=== PATIENT | female | born 1960 | race Caucasian/White ===

== ENCOUNTER 2020-07-21 15:18 | Outpatient (REF) | payer OTHER, SELFPAY ==
[2020-07-21 18:20] LABS: COVID-19 Test Negative (Negative)
== END 2020-07-21 15:19 | disposition home or self-care (01) ==
LOC: HO.LAB 15:18
PROVIDERS: PCP Internal Medicine; Visit Provider Internal Medicine
DX: Z20.828 Contact with and (suspected) exposure to other viral communicable diseases (principal)
CPT/HCPCS: 87635; C9803

== ENCOUNTER 2020-07-22 12:53 | Outpatient (REF) | payer OTHER, SELFPAY ==
[2020-07-22 13:30] LABS: COVID-19 Test Negative (Negative)
== END 2020-07-22 12:54 | disposition home or self-care (01) ==
LOC: HO.LAB 12:53
PROVIDERS: Visit Provider Internal Medicine
DX: Z20.828 Contact with and (suspected) exposure to other viral communicable diseases (principal)
CPT/HCPCS: 87635; C9803

== ENCOUNTER 2020-08-31 15:28 | Outpatient (REF) | payer OTHER, SELFPAY ==
[2020-08-31 16:38] LABS: Blood Urea Nitrogen 13 mg/dL (9-16); Estimated Glomerular Filt Rate > 60
== END 2020-08-31 15:29 | disposition home or self-care (01) ==
LOC: HO.LAB 15:28
PROVIDERS: PCP Internal Medicine; Visit Provider Internal Medicine
DX: I10 Essential (primary) hypertension (principal)
CPT/HCPCS: 82565; 84520

== ENCOUNTER 2020-09-01 10:24 | Outpatient (REF) | payer OTHER, SELFPAY ==
[2020-09-01 11:00] LABS: COVID-19 Test Negative (Negative)
== END 2020-09-01 10:25 | disposition home or self-care (01) ==
LOC: HO.EMPCOV 10:24
PROVIDERS: Visit Provider Internal Medicine
DX: Z20.828 Contact with and (suspected) exposure to other viral communicable diseases (principal)
CPT/HCPCS: 87635; C9803

== ENCOUNTER 2020-09-30 08:39 | Outpatient (REF) | payer OTHER, SELFPAY ==
--- NOTE | 2020-09-30 08:43 | CT_ITS ---
EXAMINATION: CT ABDOMEN WITH CONTRAST CLINICAL INFORMATION: Right upper quadrant pain. COMPARISON: None TECHNIQUE: Contiguous axial thin section helical images of the abdomen were performed following the administration of oral contrast and 100 mL of Omnipaque 350 intravenous contrast. The data set was reformatted in the coronal and sagittal planes and reviewed on an independent workstation. This CT examination was performed using dose optimization techniques as appropriate, variously including the following: *Automated exposure control *Adjustment of mA and/or kV according to patient size (this includes techniques or standardized protocols for targeted exams where dose is matched to indication/reason for exam; i.e. extremities or head) *Use of iterative reconstruction technique DLP: 462 mGy-cm FINDINGS: LUNG BASES: The lung bases are clear. Heart size is normal. LIVER, GALLBLADDER, AND BILIARY TREE: The liver is diffusely attenuated with normal contour and mild hepatomegaly. It measures 23.3 cm in length. There is a punctate tubular hypodensity right hepatic lobe adjacent the diaphragm likely tiny cyst on axial image 12/3. No solid enhancing lesions seen. The gallbladder has been surgically removed. PANCREAS: Unremarkable. SPLEEN: Unremarkable. ADRENAL GLANDS AND KIDNEYS: Both adrenal glands are symmetrical bilaterally and normal. Both kidneys are normal size, shape and position. No radiopaque renal calculi or hydronephrosis seen. There is no cyst or enhancing renal mass. BOWEL LOOPS: There is scattered stool seen in the colon without any significant distention. Opacified small bowel loops are of normal caliber. Appendix is not seen well. No free air or free fluid. LYMPH NODES: Mild shotty lymph nodes are seen in the retroperitoneum. VASCULAR: Abdominal aorta has normal caliber. BONES: No lytic or sclerotic process seen. CT/CT abdomen w con IMPRESSION: Moderate hepatomegaly with hepatic steatosis or fatty infiltration. Punctate lesion right hepatic lobe likely tiny cyst. Gallbladder has been surgically removed. CBD is mildly prominent an expected finding post cholecystectomy. No acute intra-abdominal process seen.
[2020-09-30] MEDS: iohexoL 350 MG/ML 100 ML INFUS..BTL IV (11:04)
== END 2020-09-30 08:40 | disposition home or self-care (01) ==
LOC: HO.CT 08:39
PROVIDERS: PCP Internal Medicine; Visit Provider Internal Medicine
DX: R10.11 Right upper quadrant pain (principal)
CPT/HCPCS: 74160; Q9967

== ENCOUNTER 2020-11-05 10:29 | Outpatient (REF) | payer OTHER, SELFPAY ==
[2020-11-05 10:48] LABS: COVID-19 Test Negative (Negative); IDNOW Serial# 55D5AD1C
== END 2020-11-05 10:30 | disposition home or self-care (01) ==
LOC: HO.EMPCOV 10:29
PROVIDERS: Visit Provider Internal Medicine
DX: Z20.822 Contact with and (suspected) exposure to COVID-19 (principal)
CPT/HCPCS: 36415; 87635; C9803

== ENCOUNTER 2022-04-22 09:27 | Outpatient (REF) | payer OTHER, SELFPAY ==
[2022-04-22 09:36] LABS: MANUAL DIFF FLAG NO
[2022-04-22 10:15] LABS: Basophils Absolute Auto 0.1 X10*3/uL (0.0-0.2); Basophils Percent Auto 0.5 % (0-2); Eosinophils Absolute Auto 0.2 X10*3/uL (0.0-0.4); Eosinophils Percent Auto 1.8 % (0-4); Hematocrit 38.5 % (37.0-47.0); Imm Gran Abs Auto 0.07 X10*3/uL (0.00-0.03); Imm Gran Pct Auto 0.7 % (0.0-0.4); Lymphocytes Absolute Auto 2.9 X10*3/uL (1.2-4.9); Lymphocytes Percent Auto 27.4 % (20-40); Mean Corpuscular HGB Conc 31.2 g/dl (31.0-35.0); Mean Corpuscular Hemoglobin 27.1 pg (27.0-33.0); Mean Corpuscular Volume 86.9 fL (80.0-98.0); Mean Platelet Volume 10.5 fL (9.4-12.3); Monocytes Absolute Auto 0.7 X10*3/uL (0.1-1.2); Monocytes Percent Auto 6.8 % (2-11); Neutrophils Absolute Auto 6.7 x10*3/uL (2.0-8.3); Neutrophils Percent Auto 62.8 % (45-73); Platelet Count 273 X10*3/uL (160-400); Red Blood Count 4.43 X10*6/uL (4.20-5.50); White Blood Count 10.6 X10*3/uL (4.8-10.8)
[2022-04-22 10:30] LABS: Estimated Average Glucose 134 mg/dL; Hemoglobin A1c % 6.3 %
[2022-04-22 10:41] LABS: Alanine Aminotransferase 11 U/L (0-31); Alkaline Phosphatase 86 U/L (39-117); Anion Gap 15 (12-20); Aspartate Amino Transferase 12 U/L (5-31); Bilirubin Total 0.3 mg/dL (0.0-1.0); Blood Urea Nitrogen 13 mg/dL (9-16); Calcium 9.1 mg/dL (8.4-10.2); Carbon Dioxide 27 mmol/L (22-29); Chloride 104 mmol/L (96-108); Cholesterol 184 mg/dL; Estimated Glomerular Filt Rate > 60; Glucose Fasting 120 mg/dL (60-99); HDL Cholesterol 46 mg/dL; LDL Cholesterol Calculated 122 mg/dl; Sodium 142 mmol/L (135-145); Total Protein 7.1 g/dL (6.5-8.0); Triglycerides 80 mg/dL
[2022-04-22 11:04] LABS: TSH reflex Free T4 2.26 uIU/mL (0.32-4.0)
[2022-04-22 11:56] LABS: Creatinine Urine 74.94 mg/dL; Microalbum/Creatinine Ratio Ur 9.3 ug/mg cr
[2022-04-27 12:31] LABS: Vitamin D 25-OH, D2 <4 ng/mL; Vitamin D 25-OH, D3 25 ng/mL; Vitamin D 25-OH, Total 25 ng/mL (30-100)
== END 2022-04-22 09:28 | disposition home or self-care (01) ==
LOC: HO.LAB 09:27
PROVIDERS: PCP Nurse Practitioner Family; Visit Provider Nurse Practitioner Family
DX: E55.9 Vitamin D deficiency, unspecified (principal); I10 Essential (primary) hypertension; J30.2 Other seasonal allergic rhinitis; J45.20 Mild intermittent asthma, uncomplicated; E78.00 Pure hypercholesterolemia, unspecified; E11.9 Type 2 diabetes mellitus without complications
CPT/HCPCS: 36415; 80053; 80061; 82043; 82306; 83036; 84443; 85025

== ENCOUNTER 2023-01-30 10:44 | Outpatient (REF) | payer OTHER, SELFPAY ==
--- NOTE | ~2023-01-30 | MM_ITS ---
EXAMINATION: MM SCREENING DIGITAL BREAST TOMOSYNTHESIS, BILATERAL CLINICAL INFORMATION: Screening. Asymptomatic. The lifetime risk of breast cancer based on the Tyrer-Cuzick Model is 8%. COMPARISON: Mammography: 02/29/2020, 12/29/2018, 12/01/2017 TECHNIQUE: Digital breast tomosynthesis is performed in both the craniocaudal and mediolateral oblique views along with computer-aided detection (CAD). Synthesized 2D images are generated from the tomosynthesis. Additional left cleavage view is provided. FINDINGS: There are scattered areas of fibroglandular density (ACR BI-RADS breast composition Category b). Breast tissue composition borders on predominantly fatty. Background stromal and fibroglandular densities are similar to prior studies. No developing density or architectural abnormality. There are no significant masses, abnormal calcifications, or other abnormalities. There is a dermal lesion overlying posterior 11:00 right breast. The axilla are unremarkable. No significant changes. MM/MM tomosynthesis screening BI IMPRESSION: No mammographic evidence of malignancy. ASSESSMENT: BI-RADS 2: Benign RECOMMENDATION: Routine annual mammography screening. This patient's information was entered into a reminder system with a target due date for their next mammogram.
== END 2023-01-30 10:45 | disposition home or self-care (01) ==
LOC: HO.MAMMO 10:44
PROVIDERS: PCP Nurse Practitioner Family; Visit Provider Nurse Practitioner Family
DX: Z12.31 Encounter for screening mammogram for malignant neoplasm of breast (principal)
CPT/HCPCS: 77063; 77067

== ENCOUNTER 2024-01-02 14:34 | Outpatient (AMB) | payer OTHER, SELFPAY ==
--- NOTE | 2024-01-02 14:37 | A.OFFPC_ITS ---
Vital Signs 01/02/24 14:39 Height 5 ft 1.5 in Weight 268 lb 8 oz BMI 49.9 BP 126/76 Blood Pressure Location Lt brachial Position Sitting Pulse 75 Pulse Source Pulse Oximeter Pulse Oximetry (%) 99 Oxygen Delivery Method Room Air Intake Visit Reasons: Transfer care from [facility] Note: Patient is here today for DWAYNE from [employer] Assistant Auditor Required: No Retirement Plan Specialist: Not Required per policy Accompanied by: Self / Same As Patient Allergies acetaminophen [From Tylenol-Codeine #3] Allergy (Severe, Verified 01/02/24 15:33) ANGIOEDEMA codeine [From Tylenol-Codeine #3] Allergy (Severe, Verified 01/02/24 15:33) ANGIOEDEMA Sulfa (Sulfonamide Antibiotics) Allergy (Intermediate, Verified 01/02/24 15:33) Unknown sulfamethoxazole [From BACTRIM] Allergy (Unknown, Verified 01/02/24 15:33) HIVES trimethoprim [From BACTRIM] Allergy (Unknown, Verified 01/02/24 15:33) HIVES metformin Adverse Reaction (Intermediate, Verified 01/02/24 15:33) Diarrhea Medication List - Last Reconciled 01/02/24 by Cesar Manzo MD albuterol sulfate 90 mcg/actuation 2 puffs inhalation Q6H PRN albuterol sulfate 5 mg inhalation Q6H PRN cetirizine 10 mg PO DAILY cholecalciferol (vitamin D3) 25 mcg PO DAILY fluticasone propionate 50 mcg/actuation (Flonase Allergy Relief) 1 spray intranasal DAILY PRN glipizide ER 5 mg PO DAILY levothyroxine 137 mcg PO DAILY olmesartan-hydrochlorothiazide 40-25 mg 1 tab PO DAILY Tobacco use date assessed: 01/02/24 Dental Screening Dental Screen Date: 01/02/24 Did you have a dental visit in the last 12 months?: No Did you have a dental problem in the last 6 months where you did not have access to dental care?: No Was dental information given to patient?: Patient has dentist HPI Transfer care from [facility] HPI Details 63-year-old female presents to the offic e to discuss her medical condition. I will be assuming her care as her provider has left the practice. 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 She gives history of prediabetes and hypertension. She would like a different medication for diabetes. Currently she takes Glucotrol. She is unable to tolerate metformin or Jardiance. Under mental stress as her brother has ALS and her sister recently underwent a kidney transplant. [facility] Medical History (Updated 01/02/24 @ 15:35 by Cesar Manzo MD) Hypertension Pre-diabetes Hypothyroidism Hyperlipidemia Morbid obesity with BMI of 50.0-59.9, adult COVID-19 Encounter to establish care Surgical History History of biopsy History of tonsillectomy History of cholecystectomy History of bilateral breast reduction surgery Social History Housing: House (town house) Alcohol intake: current Alcohol intake frequency: a few times a month Alcohol type: wine Patient Tobacco Use Status: Never used Tobacco e-Cigarette/Vaping Use: Never Used Second Hand Smoke Exposure: No service: No Current occupational status: employed Cognitive needs: No Hearing needs: No Vision needs: Yes (glasses) Questionnaire PHQ-9 Over the last 2 weeks, how often have you been bothered by any of the following problems? 1. Little interest or pleasure in doing things: not at all 2. Feeling down, depressed, or hopeless: not at all 3. Trouble falling or staying asleep, or sleeping too much: not at all 4. Feeling tired or having little energy: not at all 5. Poor appetite or overeating: not at all 6. Feeling bad about yourself - or that you are a failure or have let yourself or your family down: not at all 7. Trouble concentrating on things, such as reading the newspaper or watching television: not at all 8. Moving or speaking so slowly that other people could have noticed. Or the opposite - being so fidgety or restless that you have been moving around a lot more than usual: not at all 9. Thoughts that you would be better off or of hurting yourself in some way: not at all Total score: 0 Depression Screening Interpretation: Negative Depression Screening Done: Yes Source: Developed by Drs. Oswaldo Contreras, Anne Howard, Ramon Mosquera and colleagues, with an educational rob from [employer]. Thrive Questionnaire Date Thrive assessed: 01/02/24 I am a: Patient What is your living situation today?: I have a steady place to live Within the past 12 months, did the food you bought not last and you didn't have the money to get more?: Never true Within the past 12 months, did you worry whether your food would run out before you got money to buy more?: Never true Do you have trouble paying for medicines?: No Do you have trouble getting transportation to medical appointments?: No Do you have trouble paying your heating and electricity bill?: No Do you have trouble taking care of your child, family member or friend?: No Do you have trouble with day-to-day activities such as bathing, preparing meals, shopping, managing finances, etc.?: No Are you currently unemployed and looking for a job?: No Are you interested in more education?: No Currently or been in a relationship where the following occur: no concerns reported THRIVE Score: 0 AUDIT C Alcohol Use Questionnaire (AUDIT-C) 1. How often do you have a drink containing alcohol?: Monthly or less 2. How many drinks containing alcohol do you have on a typical day when you are drinking?: 1 or 2 Total Score: 1 SALMA-7 AMB Questionnaire SALMA-7 Date SALMA - 7 assessed: 01/02/24 Feeling nervous, anxious, or on edge: 0 = Not at all Not being able to stop or control worryin = Not at all Worrying too much about different things: 0 = Not at all Trouble relaxin = Not at all Being so restless that it is hard to sit still: 0 = Not at all Becoming easily annoyed or irritable: 0 = Not at all Feeling afraid as if something awful might happen: 0 = Not at all Total SALMA-7 score (0-4 normal; 5-9 mild; 10-14 moderate; 15-21 severe): 0 Source: Developed by Drs. Oswaldo Contreras, Anne Howard, Ramon Mosquera and colleagues, with an educational rob from [employer]. Physical exam (Primary Care) Vital Signs: Last Vital Signs Pulse 75 01/02/24 14:39 BP 126/76 01/02/24 14:39 Pulse Ox 99 01/02/24 14:39 Oxygen Delivery Method Room Air 01/02/24 14:39 Care Plan Goal for BP management: Blood pressure is in range. Continue current medications. BMI result Body Mass Index 49.9 BMI Assessment/Plan discussion: High (1 lb per week weight loss suggested.) BMI High, discussed plan: lifestyle, weight reduction and dietary Tobacco/Smoking Status: Tobacco use Status Tobacco use date assessed 01/02/24 01/02/24 14:51 Patient Tobacco Use Status Never used Tobacco 01/02/24 14:51 e-Cigarette/Vaping Use Never Used 01/02/24 14:51 PHQ-9: PHQ-9 Score PHQ-9: Total score 0 01/02/24 14:51 Depression Screening Interpretation: Negative Thrive Assessment: Date of Thrive Assessment Date Thrive assessed 01/02/24 01/02/24 14:51 Currently or been in a relationship where the following occur: no concerns reported Const General: cooperative and healthy appearing Nutritional Appearance: well nourished Orientation/consciousness: patient oriented x3 Limitations: no limitations HENMT Head: Yes normal to inspection Eyes General: appearance normal, both eyes and all related structures Neck Neck: Yes normal visual inspection Chest Chest palpation & inspection: normal palpation of entire chest wall Resp Effort & Inspection: normal respiratory effort Neuro General: patient oriented x3 Assessment and Plan Assessment & Plan (1) Morbid obesity with BMI of 50.0-59.9, adult: Code(s): E66.01 - Morbid (severe) obesity due to excess calories; Z68.43 - Body mass index [BMI] 50.0-59.9, adult Plan: Counseling on the importance of diet and exercise done. (2) Hypertension: Code(s): I10 - Essential (primary) hypertension Plan: Prescription refilled. Blood pressure is in range. (3) Pre-diabetes: Code(s): R73.03 - Prediabetes Plan: Patient was advised to get fasting blood work done. Based on the A1c, new medications will be considered. A follow-up appointment in 1 month has been requested. Orders: Orders Basic Metabolic Panel Today E66.01 - Morbid (severe) obesity due to excess calories, I10 - Essential (primary) hypertension, R73.03 - Prediabetes, Z68.43 - Body mass index [BMI] 50.0-59.9, adult Complete Blood Count no Diff Today E66.01 - Morbid (severe) obesity due to excess calories, I10 - Essential (primary) hypertension, R73.03 - Prediabetes, Z68.43 - Body mass index [BMI] 50.0-59.9, adult Liver Panel Today E66.01 - Morbid (severe) obesity due to excess calories, I10 - Essential (primary) hypertension, R73.03 - Prediabetes, Z68.43 - Body mass index [BMI] 50.0-59.9, adult Hemoglobin A1c Today E66.01 - Morbid (severe) obesity due to excess calories, I10 - Essential (primary) hypertension, R73.03 - Prediabetes, Z68.43 - Body mass index [BMI] 50.0-59.9, adult Microalbumin, Random (w Creat) Today E66.01 - Morbid (severe) obesity due to e xcess calories, I10 - Essential (primary) hypertension, R73.03 - Prediabetes, Z68.43 - Body mass index [BMI] 50.0-59.9, adult Lipid Panel Today E66.01 - Morbid (severe) obesity due to excess calories, I10 - Essential (primary) hypertension, R73.03 - Prediabetes, Z68.43 - Body mass index [BMI] 50.0-59.9, adult Thyroid Stimulating Hormone Today E66.01 - Morbid (severe) obesity due to excess calories, I10 - Essential (primary) hypertension, R73.03 - Prediabetes, Z68.43 - Body mass index [BMI] 50.0-59.9, adult UA and rflx microscopic Today E66.01 - Morbid (severe) obesity due to excess calories, I10 - Essential (primary) hypertension, R73.03 - Prediabetes, Z68.43 - Body mass index [BMI] 50.0-59.9, adult Medications: Refilled glipizide ER 5 mg PO DAILY 90 tabs 3RF albuterol sulfate 90 mcg/actuation 2 puffs inhalation Q6H PRN 8.5 grams 1RF shortness of breath or wheezing J45.20 - Mild intermittent asthma, uncomplicated levothyroxine 137 mcg PO DAILY 90 tabs 0RF Coding Level of Care Code Est Pt Level 4 (79022) Diagnoses Morbid obesity with BMI of 50.0-59.9, adult E66.01; Z68.43 Hypertension I10 Pre-diabetes R73.03
[2024-01-02 14:39] VITALS: BP 126/76; PULSE 75; O2SAT 99; BMI 49.9
== END 2024-01-02 15:28 | disposition home or self-care (01) ==
PROVIDERS: PCP Internal Medicine; Visit Provider Internal Medicine
DX: E66.01 Morbid (severe) obesity due to excess calories (principal); Z68.43 Body mass index [BMI] 50.0-59.9, adult; I10 Essential (primary) hypertension; R73.03 Prediabetes
CPT/HCPCS: 99214

== ENCOUNTER 2024-02-06 09:30 | Outpatient (REF) | payer OTHER, SELFPAY ==
[2024-02-06 10:23] LABS: Hematocrit 40.4 % (37.0-47.0); Hemoglobin 12.8 g/dl (12.0-16.0); Mean Corpuscular HGB Conc 31.7 g/dl (31.0-35.0); Mean Corpuscular Hemoglobin 28.5 pg (27.0-33.0); Mean Platelet Volume 10.4 fL (9.4-12.3); Platelet Count 285 X10*3/uL (160-400); Red Blood Count 4.49 X10*6/uL (4.20-5.50); Red Cell Distribution Width 13.8 % (11.0-16.0); White Blood Count 10.5 X10*3/uL (4.8-10.8)
[2024-02-06 10:33] LABS: Appearance Urine Cloudy; Color Urine Yellow; Glucose Urine UA Negative (Negative); Leukocyte Esterase Urine Negative (Negative); Nitrite Urine Negative (Negative); PH 6.5 (5.0-9.0); Urine Blood Negative (Negative); Urine Ketones Negative (Negative); Urine Protein Negative (Neg-Trace)
[2024-02-06 10:49] LABS: Estimated Average Glucose 131 mg/dL; Hemoglobin A1C 150.7987 umol/L; Hemoglobin A1c % 6.2 % (<6.0)
[2024-02-06 11:06] LABS: Creatinine Urine 155.47 mg/dL; Microalbum/Creatinine Ratio Ur 8.3 ug/mg cr (<30)
[2024-02-06 11:16] LABS: Alanine Aminotransferase 14 U/L (0-31); Alkaline Phosphatase 89 U/L (39-117); Anion Gap 15 (12-20); Aspartate Amino Transferase 13 U/L (5-31); Bilirubin Direct 0.2 mg/dL (0.0-0.5); Bilirubin Total 0.5 mg/dL (0.0-1.0); Blood Urea Nitrogen 12 mg/dL (9-16); Calcium 9.7 mg/dL (8.4-10.2); Carbon Dioxide 29 mmol/L (22-29); Chloride 101 mmol/L (96-108); Cholesterol 183 mg/dL (<200); Estimated Glomerular Filt Rate > 60; Glucose Random 154 mg/dL (60-115); HDL Cholesterol 43 mg/dL (>40); LDL Cholesterol Calculated 121 mg/dL (<100); Potassium 3.7 mmol/L (3.3-5.1); Sodium 141 mmol/L (135-145); Total Protein 7.4 g/dL (6.5-8.0); Triglycerides 97 mg/dL (<150)
== END 2024-02-06 09:31 | disposition home or self-care (01) ==
LOC: HO.LAB 09:30
PROVIDERS: PCP Internal Medicine; Visit Provider Internal Medicine
DX: E66.01 Morbid (severe) obesity due to excess calories (principal); Z68.43 Body mass index [BMI] 50.0-59.9, adult; R73.03 Prediabetes; I10 Essential (primary) hypertension
CPT/HCPCS: 36415; 80048; 80061; 80076; 81003; 82043; 82570; 83036; 84443; 85027

== ENCOUNTER 2024-02-07 09:23 | Outpatient (AMB) | payer OTHER, SELFPAY ==
--- NOTE | 2024-02-07 09:31 | A.OFFPC_ITS ---
Vital Signs 02/07/24 09:32 Height 5 ft 1.5 in Weight 271 lb 4 oz BMI 50.4 BP 120/72 Blood Pressure Location Lt brachial Position Sitting Pulse 97 Pulse Source Pulse Oximeter Pulse Oximetry (%) 97 Oxygen Delivery Method Room Air Intake Visit Reasons: 1mth f/u Intake Note: Patient is here to follow up on DM. Environmental Engineering Aide Required: No Manager [employer] Retail: Not Required per policy Accompanied by: Self / Same As Patient Allergies acetaminophen [From Tylenol-Codeine #3] Allergy (Severe, Verified 02/07/24 09:32) ANGIOEDEMA codeine [From Tylenol-Codeine #3] Allergy (Severe, Verified 02/07/24 09:32) ANGIOEDEMA Sulfa (Sulfonamide Antibiotics) Allergy (Intermediate, Verified 02/07/24 09:32) Unknown sulfamethoxazole [From BACTRIM] Allergy (Unknown, Verified 02/07/24 09:32) HIVES trimethoprim [From BACTRIM] Allergy (Unknown, Verified 02/07/24 09:32) HIVES metformin Adverse Reaction (Intermediate, Verified 02/07/24 09:32) Diarrhea Tobacco use date assessed: 02/07/24 Dental Screening Dental Screen Date: 01/02/24 HPI 1mth f/u HPI Details 63-year-old female presents to the [facility] e for a follow-up visit. Patient wishes to discuss her blood work results. Continues to take glipizide. Frustrated that she has not able to lose weight. [facility] Medical History (Updated 01/02/24 @ 15:35 by Cesar Manzo MD) Hypertension Pre-diabetes Hypothyroidism Hyperlipidemia Morbid obesity with BMI of 50.0-59.9, adult COVID-19 Encounter to establish care Surgical History History of biopsy History of tonsillectomy History of cholecystectomy History of bilateral breast reduction surgery Social History Housing: House (town house) Alcohol intake: current Alcohol intake frequency: a few times a month Alcohol type: wine Patient Tobacco Use Status: Never used Tobacco e-Cigarette/Vaping Use: Never Used Second Hand Smoke Exposure: No service: No Current occupational status: employed Cognitive needs: No Hearing needs: No Vision needs: Yes (glasses) Questionnaire Thrive Questionnaire Date Thrive assessed: 01/02/24 SALMA-7 AMB Questionnaire SALMA-7 Date SALMA - 7 assessed: 01/02/24 Source: Developed by Drs. Oswaldo Contreras, Anne Howard, Ramon Mosquera and colleagues, with an educational rob from [employer]. Physical exam (Primary Care) Vital Signs: Last Vital Signs Pulse 97 02/07/24 09:32 BP 120/72 02/07/24 09:32 Pulse Ox 97 02/07/24 09:32 Oxygen Delivery Method Room Air 02/07/24 09:32 BMI result Body Mass Index 50.4 Tobacco/Smoking Status: Tobacco use Status Tobacco use date assessed 02/07/24 02/07/24 09:36 Patient Tobacco Use Status Never used Tobacco 02/07/24 09:36 e-Cigarette/Vaping Use Never Used 02/07/24 09:36 Thrive Assessment: Date of Thrive Assessment Date Thrive assessed 01/02/24 02/07/24 09:36 Const General: cooperative and healthy appearing Nutritional Appearance: well nourished Orientation/consciousness: patient oriented x3 Limitations: no limitations HENMT Head: Yes normal to inspection Eyes General: appearance normal, both eyes and all related structures Neck Neck: Yes normal visual inspection Chest Chest palpation & inspection: normal palpation of entire chest wall Resp Effort & Inspection: normal respiratory effort Neuro General: patient oriented x3 Assessment and Plan Assessment & Plan (1) Pre-diabetes: Code(s): R73.03 - Prediabetes Plan: Blood work reviewed with patient. Counseling on the importance of diet and exercise done. Nutritional consult has been placed. Glipizide has been discontinued and Trulicity started. Will follow-up with the patient. Medications: New dulaglutide (Trulicity) 0.75 mg (0.5 mL) subcut QWEEK 2 mL 1RF Discontinued glipizide ER Discontinued Reason: Doctor's Order 5 mg PO DAILY 90 tabs 3RF Coding Level of Care Code Est Pt Level 3 (05732) Complex EM visit Add On G2211 Diagnoses Pre-diabetes R73.03
[2024-02-07 09:32] VITALS: BP 120/72; PULSE 97; O2SAT 97; BMI 50.4
== END 2024-02-07 10:09 | disposition home or self-care (01) ==
PROVIDERS: PCP Internal Medicine; Visit Provider Internal Medicine
DX: R73.03 Prediabetes (principal)
CPT/HCPCS: 99213; G2211

== ENCOUNTER 2024-02-29 08:47 | Outpatient (REF) | payer OTHER, SELFPAY ==
--- NOTE | ~2024-02-29 | MM_ITS ---
EXAMINATION: MM SCREENING DIGITAL BREAST TOMOSYNTHESIS, BILATERAL CLINICAL INFORMATION: Screening. Asymptomatic. The patient is status post bilateral breast reduction. COMPARISON: Mammography: This study is compared with prior exams dating back to 2018. TECHNIQUE: Digital breast tomosynthesis is performed in both the craniocaudal and mediolateral oblique views along with computer-aided detection (CAD). Synthesized 2D images are generated from the tomosynthesis. FINDINGS: The breasts are almost entirely fatty (ACR BI-RADS breast composition Category a). There are no significant masses, abnormal calcifications, or other abnormalities. Post reduction changes are present in each breast. There is a biopsy tissue marker in the lower inner quadrant of the right breast. MM/MM tomosynthesis screening BI IMPRESSION: No mammographic evidence of malignancy. ASSESSMENT: BI-RADS BI-RADS 2 - Benign Findings RECOMMENDATION: Routine annual mammography screening. 1 year F/U This examination should not preclude the clinical evaluation of a suspicious palpable abnormality. This patient's information was entered into a reminder system with a target due date for their next mammogram.
== END 2024-02-29 08:48 | disposition home or self-care (01) ==
LOC: HO.MAMMO 08:47
PROVIDERS: PCP Internal Medicine; Visit Provider Internal Medicine
DX: Z12.31 Encounter for screening mammogram for malignant neoplasm of breast (principal)
CPT/HCPCS: 77063; 77067

== ENCOUNTER → 2024-02-29 09:00 | Outpatient (BNV) | payer OTHER, SELFPAY | PROVIDERS: PCP Internal Medicine; Visit Provider Radiology Diagnostic Radiology | DX: Z12.31 Encounter for screening mammogram for malignant neoplasm of breast (principal) | CPT/HCPCS: 77063; 77067 ==

== ENCOUNTER 2024-06-03 14:01 | Outpatient (AMB) | payer OTHER, SELFPAY ==
--- NOTE | 2024-06-03 14:02 | A.OFFPC_ITS ---
Vital Signs 06/03/24 14:06 Height 5 ft 1.5 in Weight 264 lb BMI 49.1 Intake Visit Reasons: Reschd from 05/30 - 3 month Follow - up Intake Note: Patient is here to follow up on Asthma flare up, dry coughing, no fever, no chills, no body aches. Negative home covid test Service Desk Analyst Required: No Director Epidemiology: Not Required per policy Accompanied by: Self / Same As Patient Allergies acetaminophen [From Tylenol-Codeine #3] Allergy (Severe, Verified 06/03/24 14:40) ANGIOEDEMA codeine [From Tylenol-Codeine #3] Allergy (Severe, Verified 06/03/24 14:40) ANGIOEDEMA Sulfa (Sulfonamide Antibiotics) Allergy (Intermediate, Verified 06/03/24 14:40) Unknown sulfamethoxazole [From BACTRIM] Allergy (Unknown, Verified 06/03/24 14:40) HIVES trimethoprim [From BACTRIM] Allergy (Unknown, Verified 06/03/24 14:40) HIVES metformin Adverse Reaction (Intermediate, Verified 06/03/24 14:40) Diarrhea Medication List - Last Reconciled 06/03/24 by Cesar Manzo MD albuterol sulfate 90 mcg/actuation 2 puffs inhalation Q6H PRN albuterol sulfate 5 mg inhalation Q6H PRN azithromycin take 500 mg today (day 1), then 250 mg for 4 days (days 2-5) PO cetirizine 10 mg PO DAILY cholecalciferol (vitamin D3) 25 mcg PO DAILY dulaglutide (Trulicity) 0.75 mg (0.5 mL) subcut QWEEK fluticasone propionate 50 mcg/actuation (Flonase Allergy Relief) 1 spray intranasal DAILY PRN levothyroxine 137 mcg PO DAILY olmesartan-hydrochlorothiazide 40-25 mg 1 tab PO DAILY prednisone 60 mg (3 x 20 mg) PO DAILY Tobacco use date assessed: 02/07/24 Dental Screening Dental Screen Date: 01/02/24 HPI Reschd from 05/30 - 3 month Follow - up HPI Details Patient presents for a sick visit via [employer].. Reporting symptoms of sinus congestion, sore throat and difficulty swallowing. Low-grade fever. No family member is sick. No recent travel. Patient reports symptoms of malaise and fatigue. Patient reports she is tolerating the Trulicity well. Her blood sugars are well controlled and she has discontinued the glipizide. [facility] Medical History (Updated 06/03/24 @ 14:50 by Cesar Manzo MD) Upper respiratory tract infection Hypertension Pre-diabetes Hypothyroidism Hyperlipidemia Morbid obesity with BMI of 50.0-59.9, adult COVID-19 Encounter to establish care Surgical History History of biopsy History of tonsillectomy History of cholecystectomy History of bilateral breast reduction surgery Social History Housing: House (town house) Alcohol intake: current Alcohol intake frequency: a few times a month Alcohol type: wine Patient Tobacco Use Status: Never used Tobacco e-Cigarette/Vaping Use: Never Used Second Hand Smoke Exposure: No service: No Current occupational status: employed Cognitive needs: No Hearing needs: No Vision needs: Yes (glasses) Questionnaire Thrive Questionnaire Date Thrive assessed: 01/02/24 SALMA-7 AMB Questionnaire SALMA-7 Date SALMA - 7 assessed: 01/02/24 Source: Developed by Drs. Oswaldo Contreras, Anne Howard, Ramon Mosquera and colleagues, with an educational rob from [employer]. Physical exam (Primary Care) BMI result Body Mass Index 49.1 Tobacco/Smoking Status: Tobacco use Status Tobacco use date assessed 02/07/24 06/03/24 14:06 Patient Tobacco Use Status Never used Tobacco 06/03/24 14:06 e-Cigarette/Vaping Use Never Used 06/03/24 14:06 Thrive Assessment: Date of Thrive Assessment Date Thrive assessed 01/02/24 06/03/24 14:06 Telehealth Telehealth Telehealth Platform: Telephone Location of provider rendering services: practice address Location of patient: address on file Patient Identification confirmed using: Name, : Yes Telehealth method: voice only Patient verbally consented to treatment: Yes Patient verbally consented to billing insurance company: Yes Patient informed of any privacy concerns related to visit: Yes Minutes spent on Phone/Video with Pt.: 15 Assessment and Plan Assessment & Plan (1) Pre-diabetes: Code(s): R73.03 - Prediabetes Plan: A nutrition consult has been requested again. (2) Upper respiratory tract infection: Code(s): J06.9 - Acute upper respiratory infection, unspecified Plan: Azithromycin and prednisone called in. If symptoms do not improve to follow-up here. Orders: Referrals Medical Nutrition Therapy Referral I10 - Essential (primary) hypertension Medications: New prednisone 60 mg (3 x 20 mg) PO DAILY 9 tabs 0RF azithromycin take 500 mg today (day 1), then 250 mg for 4 days (days 2-5) PO 6 tabs 0RF Coding Level of Care Code Est Pt Level 3 (88289) Complex EM visit Add On G2211 Diagnoses Pre-diabetes R73.03 Upper respiratory tract infection J06.9
[2024-06-03 14:06] VITALS: BMI 49.1
== END 2024-06-03 16:04 | disposition home or self-care (01) ==
LOC: HO.HMCH 14:01
PROVIDERS: PCP Internal Medicine; Visit Provider Internal Medicine
DX: R73.03 Prediabetes (principal); J06.9 Acute upper respiratory infection, unspecified

== ENCOUNTER → 2024-06-03 14:01 | Outpatient (BNVA) | payer OTHER, SELFPAY | PROVIDERS: PCP Internal Medicine; Visit Provider Internal Medicine | DX: J06.9 Acute upper respiratory infection, unspecified (principal); R73.03 Prediabetes ==

== ENCOUNTER 2024-07-29 09:44 | Outpatient (AMB) | payer OTHER, SELFPAY ==
[2024-07-29 09:47] VITALS: BMI 49.6
--- NOTE | 2024-07-29 09:47 | A.OFFVIS_ITS ---
VS Expanded 07/29/24 09:47 07/29/24 10:07 Height 5 ft 1.5 in 5 ft 1.5 in Weight 266 lb 15.677 oz 267 lb BMI 49.6 49.6 Intake Visit Reasons: Essential (primary) hypertension/CONFIRMED Allergies acetaminophen [From Tylenol-Codeine #3] Allergy (Severe, Verified 06/03/24 14:40) ANGIOEDEMA codeine [From Tylenol-Codeine #3] Allergy (Severe, Verified 06/03/24 14:40) ANGIOEDEMA Sulfa (Sulfonamide Antibiotics) Allergy (Intermediate, Verified 06/03/24 14:40) Unknown sulfamethoxazole [From BACTRIM] Allergy (Unknown, Verified 06/03/24 14:40) HIVES trimethoprim [From BACTRIM] Allergy (Unknown, Verified 06/03/24 14:40) HIVES metformin Adverse Reaction (Intermediate, Verified 06/03/24 14:40) Diarrhea Nutrition Presentation Details: Pt presents for MNT for HTN, Pt also has pre dm dx Pt reports typically having 2 meals/day and snacks throughout Pt is lactose intolerant Typical meal coffee/milk (lactaid 1% wtih AM 11: 30 m toast w peanut butter, coffee/landon /sugar 12: 30 soup (vegetables/rice/nooodles chicken ), water 2pm fruit snack sand peanut butter jelly 5pm- 7- pm salmon with spinach asparagus 36 oz of water /day BS Monitoring Most Recent Diabetes Results: Microalb/Creat Ratio 8.3 ug/mg cr (<30) 02/06/24 Cholesterol 183 mg/dL (<200) 02/06/24 HDL Cholesterol 43 mg/dL (>40) 02/06/24 Triglycerides 97 mg/dL (<150) 02/06/24 Creatinine 0.70 mg/dL (0.5-1.4) 02/06/24 Blood Urea Nitrogen 12 mg/dL (9-16) 02/06/24 Sodium 141 mmol/L (135-145) 02/06/24 Potassium 3.7 mmol/L (3.3-5.1) 02/06/24 Chloride 101 mmol/L (96-108) 02/06/24 Carbon Dioxide 29 mmol/L (22-29) 02/06/24 Calcium 9.7 mg/dL (8.4-10.2) 02/06/24 AST 13 U/L (5-31) 02/06/24 ALT 14 U/L (0-31) 02/06/24 Total Protein 7.4 g/dL (6.5-8.0) 02/06/24 Albumin 4.0 g/dL (3.5-5.0) 02/06/24 CUI-Lduwsrq-Jp.Jeor Equation Height: 5 ft 1.5 in Weight: 267 lb Resting Metabolic Rate: 1720.15 Calculated Activity Level: Sedentary Calories Needed to Maintain Weight: 4.18 Diagnosis Nutrition problem #1: food nutri know defi As related to (etiology) #1: diagnosis As evidenced by (sign/symptom) #1: knowledge deficit of diet Monitoring/Goals Nutrition problem monitoring: level of knowledge/skill, total PRO intake and total CHO intake [facility] Medical History (Updated 07/29/24 @ 12:01 by Ama Atwood, RD, LDN) Upper respiratory tract infection Hypertension Pre-diabetes Hypothyroidism Hyperlipidemia Morbid obesity with BMI of 50.0-59.9, adult COVID-19 Encounter to establish care Surgical History History of biopsy History of tonsillectomy History of cholecystectomy History of bilateral breast reduction surgery Social History Housing: House (town house) Alcohol intake: current Alcohol intake frequency: a few times a month Alcohol type: wine Patient Tobacco Use Status: Never used Tobacco e-Cigarette/Vaping Use: Never Used Second Hand Smoke Exposure: No service: No Current occupational status: employed Cognitive needs: No Hearing needs: No Vision needs: Yes (glasses) Assessment & Plan Assessment & Plan (1) Pre-diabetes: Comment: Pt with dx of HTN Code(s): R73.03 - Prediabetes Category: Medical Plan: Wt: 121 Kg ( 08/04 ) Est kcal needs as per MSJ: 2100 (40% carb, 30% protein/fat) Est fluid needs as per 25-30 ml/d: 3600 Est prot per day as per 1 g/kg bw: 121 Recommend fiber intake : 8-10 g per day and gradually increase to 25-28 g per day for women and 35-38 g for men or as tolerated Recommend sodium intake per day : less than 2300 mg Educated patient on: ( R = reviewed V = verbalizes understanding N/R = needs review N/A = not applicable * Food sources of carbohydrate, adequate serving sizes and its role in various health conditions: R * Differences between complex carbohydrates a simple carbohydrates, role of fiber in diet: R * Lean protein sources of foods: R V NR * Differences between types of fats and role in diet (mono on saturated fat fatty acids, saturated fatty acids, trans fats): R V N/R * Food sources of sodium in salt and healthy modifications for heart health in kidney health: R V R/V * Vitamins and minerals: R V N/R * Healthy plate method concept: R V N/R * Physical activity: Benefits a precaution: R V N/R * Hypoglycemia protocol (rule of 15): R V N/R * Dietary prevention of Hyperglycemia: R Patient Instructions: Practice mindful eating work on balancing your meals, reducing total carbs to 60 g at dinner following healthy plate method Coding Level of Care Code Nutr Indiv Intake (97115) Diagnoses Pre-diabetes R73.03 Time Spent (min) 30
[2024-07-29 10:07] VITALS: BMI 49.6
== END 2024-07-29 10:18 | disposition home or self-care (01) ==
PROVIDERS: PCP Internal Medicine; Visit Provider Dietitian, Registered
DX: R73.03 Prediabetes (principal)

== ENCOUNTER → 2024-07-29 09:44 | Outpatient (BNVA) | payer OTHER, SELFPAY | PROVIDERS: PCP Internal Medicine; Visit Provider Dietitian, Registered | DX: I10 Essential (primary) hypertension (principal); R73.03 Prediabetes; Z71.3 Dietary counseling and surveillance | CPT/HCPCS: 97802 ==

== ENCOUNTER 2024-12-19 12:59 | Outpatient (AMB) | payer OTHER, SELFPAY ==
--- NOTE | 2024-12-19 13:03 | A.OFFPC_ITS ---
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 Required: No Accompanied by: Self / Same As Patient Allergies acetaminophen [From Tylenol-Codeine #3] Allergy (Severe, Verified 12/19/24 13:50) ANGIOEDEMA codeine [From Tylenol-Codeine #3] Allergy (Severe, Verified 12/19/24 13:50) ANGIOEDEMA Sulfa (Sulfonamide Antibiotics) Allergy (Intermediate, Verified 12/19/24 13:50) Unknown sulfamethoxazole [From BACTRIM] Allergy (Unknown, Verified 12/19/24 13:50) HIVES trimethoprim [From BACTRIM] Allergy (Unknown, Verified 12/19/24 13:50) HIVES metformin Adverse Reaction (Intermediate, Verified 12/19/24 13:50) Diarrhea Medication List - Last Reconciled 12/19/24 by Neda Olivera PA-C albuterol sulfate 90 mcg/actuation 2 puffs inhalation Q6H PRN albuterol sulfate 5 mg inhalation Q6H PRN cetirizine 10 mg PO DAILY cholecalciferol (vitamin D3) 25 mcg PO DAILY dulaglutide 1.5 mg (0.5 mL) subcut QWEEK 4 weeks fluticasone propionate 50 mcg/actuation (Flonase Allergy Relief) 1 spray intranasal DAILY PRN levothyroxine 137 mcg PO DAILY olmesartan-hydrochlorothiazide 40-25 mg 1 tab PO DAILY rosuvastatin (Crestor) 5 mg PO BEDTIME Tobacco use date assessed: 12/19/24 Dental Screening Dental Screen Date: 12/19/24 Did you have a dental visit in the last 12 months?: Yes Did you have a dental problem in the last 6 months where you did not have access to dental care?: No Was dental information given to patient?: Patient has dentist HPI 3 month f/u HPI Details History of Present Illness The patient is a 64-year-old female presenting for a routine three-month follow- up concerning her type 2 diabetes mellitus and relevant medication management. Following a transition from glyburide to Trulicity, she observes intermittent weight variations despite previous weight loss. Discussing lipid management, her LDL cholesterol was previously noted at 121 mg/dL, and monitoring for hyperlipidemia was suggested. Thyroid function remained normal on the last review, though she notes persistent fatigue impacting her daily functions. Asthma, initially provoked by chemical exposure and managed with albuterol, remains positive with no current exacerbations. 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 - Family: Has children and grandchildren . - Nutrition: Attempting weight managemen t, cutting down on sugars, juices and monitoring dietary intake. - Lifestyle: Experiences fatigue; family structure includes grandchildren who attend daycare. - Family Planning: Has a supportive [employer] network. [facility] Medical History (Updated 12/19/24 @ 13:56 by Neda Olivera PA-C) Obesity, morbid, BMI 40.0-49.9 Upper respiratory tract infection Hypertension Pre-diabetes Hypothyroidism Hyperlipidemia Morbid obesity with BMI of 50.0-59.9, adult COVID-19 Encounter to establish care Surgical History History of biopsy History of tonsillectomy History of cholecystectomy History of bilateral breast reduction surgery Social History Housing: House (town house) Alcohol intake: current Alcohol intake frequency: a few times a month Alcohol type: wine Patient Tobacco Use Status: Never used Tobacco e-Cigarette/Vaping Use: Never Used Second Hand Smoke Exposure: No service: No Current occupational status: employed Cognitive needs: No Hearing needs: No Vision needs: Yes (glasses) Questionnaire PHQ-9 Over the last 2 weeks, how often have you been bothered by any of the following problems? 1. Little interest or pleasure in doing things: not at all 2. Feeling down, depressed, or hopeless: not at all 3. Trouble falling or staying asleep, or sleeping too much: not at all 4. Feeling tired or having little energy: not at all 5. Poor appetite or overeating: not at all 6. Feeling bad about yourself - or that you are a failure or have let yourself or your family down: not at all 7. Trouble concentrating on things, such as reading the newspaper or watching television: not at all 8. Moving or speaking so slowly that other people could have noticed. Or the opposite - being so fidgety or restless that you have been moving around a lot more than usual: not at all 9. Thoughts that you would be better off or of hurting yourself in some way: not at all Total score: 0 Depression Screening Interpretation: Negative Depression Screening Done: Yes 04191 - PHQ-9 Billing: Yes Source: Developed by Drs. Oswaldo Contreras, Anne Howard, Ramon Mosquera and colleagues, with an educational rob from [employer]. Thrive Questionnaire Date Thrive assessed: 12/19/24 I am a: Patient What is your living situation today?: I have a steady place to live Within the past 12 months, did the food you bought not last and you didn't have the money to get more?: Never true Within the past 12 months, did you worry whether your food would run out before you got money to buy more?: Never true Do you have trouble paying for medicines?: No Do you have trouble getting transportation to medical appointments?: No Do you have trouble paying your heating and electricity bill?: No Do you have trouble taking care of your child, family member or friend?: No Do you have trouble with day-to-day activities such as bathing, preparing meals, shopping, managing finances, etc.?: No Are you currently unemployed and looking for a job?: No Are you interested in more education?: No Please select the resources that you would like help with: None Currently or been in a relationship where the following occur: No concerns reported THRIVE Score: 0 AUDIT C Alcohol Use Questionnaire (AUDIT-C) 1. How often do you have a drink containing alcohol?: Monthly or less (Socially) 2. How many drinks containing alcohol do you have on a typical day when you are drinking?: 1 or 2 3. How often do you have six or more drinks on one occasion?: Never Total Score: 1 Score Reviewed/Action Taken: No SALMA-7 AMB Questionnaire SALMA-7 Date SALMA - 7 assessed: 12/19/24 Feeling nervous, anxious, or on edge: 0 = Not at all Not being able to stop or control worryin = Not at all Worrying too much about different things: 0 = Not at all Trouble relaxin = Not at all Being so restless that it is hard to sit still: 0 = Not at all Becoming easily annoyed or irritable: 0 = Not at all Feeling afraid as if something awful might happen: 0 = Not at all Total SALMA-7 score (0-4 normal; 5-9 mild; 10-14 moderate; 15-21 severe): 0 Source: Developed by Drs. Oswaldo Contreras, Anne Howard, Ramon Mosquera and colleagues, with an educational rob from [employer]. SALMA-7 Assessment Billing SALMA-7 Assessment Tool: SALMA-7 Assessment 86739 Review of Systems Const Details: Review of Systems - Respiratory: Reports recent coughing and wheezing two days ago, denies current asthma symptoms. - Endocrine: Denies any significant thyroid symptoms apart from fatigue. - Cardiovascular: Denies swelling, leg cramps. - Musculoskeletal: Denies general joint or muscle pain, but reports recent insect bite. - Dermatological: Reports a feeling of swelling or tickling where there may have been an insect bite. - General: Denies significant weight loss or gain outside expected variances, reports fatigue. Physical exam (Primary Care) Vital Signs: Last Vital Signs Pulse 78 12/19/24 13:04 BP 148/82 H 12/19/24 13:04 Pulse Ox 99 12/19/24 13:04 Oxygen Delivery Method Room Air 12/19/24 13:04 Care Plan Goal for BP management: <130/90 patient to continue olmesartan- hydrochlorothiazide combo 40-25 mg daily and keep a blood pressure diary return in 1 month BMI result Body Mass Index 49.4 BMI Assessment/Plan discussion: High BMI High, discussed plan: lifestyle, weight reduction, dietary, physical activity and alcohol moderation Tobacco/Smoking Status: Tobacco use Status Tobacco use date assessed 12/19/24 12/19/24 13:09 Patient Tobacco Use Status Never used Tobacco 12/19/24 13:09 e-Cigarette/Vaping Use Never Used 12/19/24 13:09 PHQ-9: PHQ-9 Score PHQ-9: Total score 0 12/19/24 13:19 Depression Screening Interpretation: Negative Thrive Assessment: Date of Thrive Assessment Date Thrive assessed 12/19/24 12/19/24 13:09 Currently or been in a relationship where the following occur: No concerns reported Const Other: Physical Exam Appearance: Alert. Oriented X3. No acute distress. Head: Normal external exam. Normocephalic. Atraumatic. Eyes: Pupils are equal, round, and reactive to light. Extraocular movements intact. Conjunctiva and sclera normal. Eyelids normal. Throat: Pharynx normal. Uvula midline. Moist mucous membranes. Neck: Normal inspection. Neck supple. Full range of motion. Cardiovascular: Normal heart rate and rhythm. Heart sound normal. No murmurs noted. Pulses normal throughout. Respiratory: No respiratory distress. Painless inspiration. Breath sounds normal. No wheezes/rales/rhonchi noted. Chest nontender. No accessory muscle usage noted or decreased air movement noted. Back: No costovertebral angle tenderness. Full range of motion noted. Skin: Skin warm and dry. Normal skin color. Normal skin turgor. No rashes/lesions/lacerations noted. Extremities: No lower extremity edema. Extremities exhibit normal range of motion. Neuro: Oriented X 3. Results AMB Hemoglobin A1c AMB Hemoglobin A1c 6.1 % Last Edit by Kayce Gonzalez CMA on 12/19/24 13:19 Results Reviewed Results Reviewed: Laboratory Last Values Hgb A1c (Clinic) 6.1 % (4.0-6.0) H 12/19/24 13:18 Results - Labs: Previous CBC normal with no anemia; Blood glucose was 154 mg/dL, HbA1c decreased to 6.1%, suggesting improved glycemic control. - Lipid Profile: LDL cholesterol at 121 mg/dL from last year's report. Coding Level of Care Code Est Pt Level 4 (14927) Complex EM visit Add On G2211 Diagnoses Hyperlipidemia E78.5 Hypothyroidism E03.9 Hypertension I10 Pre-diabetes R73.03 Obesity, morbid, BMI 40.0-49.9 E66.01 Additional Codes SALMA-7 Assessment Billing - SALMA-7 Assessment Tool: SALMA-7 Assessment 90053 ([id number]) PHQ-9 - 33899 - PHQ-9 Billing: Yes ([id number]) Assessment & Plan Assessment & Plan (1) Hyperlipidemia: Code(s): E78.5 - Hyperlipidemia, unspecified Category: Medical Plan: Plan: Initiate rosuvastatin 5 mg nightly, educate about potential muscle cramps, and schedule follow-up lipid panel. Encourage lifestyle adjustments to aid cholesterol reduction. Condition is chronic and stable continue to monitor. (2) Hypothyroidism: Code(s): E03.9 - Hypothyroidism, unspecified Category: Medical Plan: Plan: Conduct thyroid function and related serological tests. Track fatigue symptoms and adjust therapy accordingly upon results. Patient to continue levothyroxine 137 mcg daily. Condition is chronic and stable continue to monitor. (3) Hypertension: Code(s): I10 - Essential (primary) hypertension Category: Medical (4) Pre-diabetes: Comment: Pt with dx of HTN Code(s): R73.03 - Prediabetes Category: Medical Plan: Plan: Adjust Trulicity dosage, monitor over four weeks, and reassess efficacy. Maintain monitoring of A1c levels and conduct comprehensive annual blood panel. Condition is chronic and stable continue to monitor. (5) Obesity, morbid, BMI 40.0-49.9: Code(s): E66.01 - Morbid (severe) obesity due to excess calories Category: Medical Plan: Trulicity dose will be increased at this time. Patient will improve her diet and exercise regimen. Patient to return in 1 month for re-evaluation. Condition is chronic and stable continue to monitor. Plan Plan Patient was informed and verbally consented to the use of an ambient scribe for clinic note documentation during this visit. 1. Hyperlipidemia Plan: Initiate rosuvastatin 5 mg nightly, educate about potential muscle cramps, and schedule follow-up lipid panel. Encourage lifestyle adjustments to aid cholesterol reduction. 2. Hypothyroidism Plan: Conduct thyroid function and related serological tests. Track fatigue symptoms and adjust therapy accordingly upon results. 3. Prediabetes Plan: Adjust Trulicity dosage, monitor over four weeks, and reassess efficacy. Maintain monitoring of A1c levels and conduct comprehensive annual blood panel. 4. Other acute and subacute respiratory conditions due to chemicals, gases, fumes and vapors Plan: Continue albuterol symptomatic management. Emphasize avoidance of identifiable chemical triggers and observe for respiratory improvements. Discussion Notes During our discussion, we explored the options for managing the patient's diabetes medication amid her concern for weight management. Ultimately, after determining it was not feasible to combine Trulicity and Ozempic, a decision to increase the Trulicity dosage to 1.5 mg was agreed upon, with a plan to reassess in four weeks for tolerance and efficacy. Additionally, initiation of rosuvastatin 5 mg was discussed to address high LDL levels, with a review of known side effects such as myopathy. The importance of continuing lifestyle adjustments in terms of diet and weight monitoring was highlighted, considering the association of weight and diabetes management. Further, a comprehensive lab panel was ordered to evaluate thyroid function to address reported fatigue, with follow-up to ensure thorough monitoring. Orders: Orders Complete Blood Count Auto Diff Today Z00.00 - Encounter for general adult medical examination without abnormal findings Comprehensive [place]. Panel Fast Today Z00.00 - Encounter for general adult medical examination without abnormal findings Erythrocyte Sedimentation Rate Today Z00.00 - Encounter for general adult medical examination without abnormal findings Liver Panel Today Z00.00 - Encounter for general adult medical examination without abnormal findings Vitamin B12 and Folate Today Z00.00 - Encounter for general adult medical examination without abnormal findings Vitamin D 25-OH Total Today Z00.00 - Encounter for general adult medical examination without abnormal findings TSH reflex Free T4 Today Z00.00 - Encounter for general adult medical examination without abnormal findings AMB Hemoglobin A1c Today R73.03 - Prediabetes C Reactive Protein Today Z00.00 - Encounter for general adult medical examination without abnormal findings Lipid Panel Today Z00.00 - Encounter for general adult medical examination without abnormal findings Magnesium Today Z00.00 - Encounter for general adult medical examination wi thout abnormal findings Medications: New rosuvastatin (Crestor) 5 mg PO BEDTIME 90 tabs 1RF rosuvastatin (Crestor) 5 mg PO DAILY 90 tabs 1RF Changed From dulaglutide (Trulicity) 0.75 mg (0.5 mL) subcut QWEEK 2 mL 1RF To dulaglutide 1.5 mg (0.5 mL) subcut QWEEK 4 weeks 2 mL 1RF Refilled cetirizine 10 mg PO DAILY 90 tabs 0RF Patient Instructions: Patient Instructions - Continue taking Trulicity with an increased dosage as discussed. - Start taking rosuvastatin (Crestor) 5 mg at bedtime. Report any muscle cramps or unusual symptoms. - Maintain a balanced diet and monitor weight and blood sugar levels. - Schedule and complete follow-up blood work within the next month, fasting prior to the tests. - Record daily blood pressure readings and communicate the log during the next visit. - Schedule a one-month follow-up appointment to review new medication efficacy and lab results. - Seek immediate care if experiencing significant side effects or symptoms such as chest pain or severe headaches.
[2024-12-19 13:04] VITALS: BP 148/82; PULSE 78; O2SAT 99; BMI 49.4
== END 2024-12-19 13:50 | disposition home or self-care (01) ==
LOC: HO.HMCH 13:00
PROVIDERS: PCP Internal Medicine; Visit Provider Physician Assistant Medical
DX: R73.03 Prediabetes (principal)

== ENCOUNTER → 2024-12-19 12:59 | Outpatient (BNVA) | payer OTHER, SELFPAY | PROVIDERS: PCP Internal Medicine; Visit Provider Physician Assistant Medical | DX: E78.5 Hyperlipidemia, unspecified (principal); E03.9 Hypothyroidism, unspecified; I10 Essential (primary) hypertension; R73.03 Prediabetes; E66.01 Morbid (severe) obesity due to excess calories; Z79.899 Other long term (current) drug therapy | CPT/HCPCS: 83036; 96127 ==

== ENCOUNTER 2025-02-27 14:01 | Outpatient (AMB) | payer OTHER, SELFPAY ==
--- NOTE | 2025-02-27 14:12 | MHC.PC.OV ---
Vital Signs 02/27/25 14:14 Height 5 ft 1.5 in Weight 266 lb 4 oz BMI 49.5 BP 120/66 Blood Pressure Location Lt brachial Position Sitting Pulse 98 Pulse Source Pulse Oximeter Temp 97.3 F Temp Source Temporal Artery Scan Pulse Oximetry (%) 97 Oxygen Delivery Method Room Air Intake Visit Reasons: follow up - see comments Intake Note: Patient is here to follow up on DM, HLD, Hypothyroidism, HTN. [place] Manager Required: No Field Irrigation Worker: Not Required per policy Accompanied by: Self / Same As Patient Allergies acetaminophen (From Tylenol-Codeine #3) Allergy (Severe, Verified 03/17/25 20:34) ANGIOEDEMA codeine (From Tylenol-Codeine #3) Allergy (Severe, Verified 03/17/25 20:34) ANGIOEDEMA Sulfa (Sulfonamide Antibiotics) Allergy (Intermediate, Verified 03/17/25 20:34) Unknown sulfamethoxazole (From BACTRIM) Allergy (Unknown, Verified 03/17/25 20:34) HIVES trimethoprim (From BACTRIM) Allergy (Unknown, Verified 03/17/25 20:34) HIVES metformin Adverse Reaction (Intermediate, Verified 03/17/25 20:34) Diarrhea Medication List - Last Reconciled 03/17/25 by Cesar Manzo MD albuterol sulfate 90 mcg/actuation 2 puffs inhalation Q6H PRN albuterol sulfate 5 mg inhalation Q6H PRN cetirizine 10 mg PO DAILY cholecalciferol (vitamin D3) 25 mcg PO DAILY dulaglutide 1.5 mg (0.5 mL) subcut QWEEK 4 weeks fluticasone propionate 50 mcg/actuation (Flonase Allergy Relief) 1 spray intranasal DAILY PRN levothyroxine 137 mcg PO DAILY olmesartan-hydrochlorothiazide 40-25 mg 1 tab PO DAILY rosuvastatin (Crestor) 5 mg PO BEDTIME Tobacco use date assessed: 02/27/25 Dental Screening Dental Screen Date: 12/19/24 [facility] Medical History Obesity, morbid, BMI 40.0-49.9 Upper respiratory tract infection Hypertension Pre-diabetes Hypothyroidism Hyperlipidemia Morbid obesity with BMI of 50.0-59.9, adult COVID-19 Encounter to establish care Surgical History History of biopsy History of tonsillectomy History of cholecystectomy History of bilateral breast reduction surgery Social History Housing: House (town house) Alcohol intake: current Alcohol intake frequency: a few times a month Alcohol type: wine Patient Tobacco Use Status: Never used Tobacco e-Cigarette/Vaping Use: Never Used Second Hand Smoke Exposure: No service: No Current occupational status: employed Cognitive needs: No Hearing needs: No Vision needs: Yes (glasses) Questionnaire Thrive Questionnaire Date Thrive assessed: 12/19/24 SALMA-7 AMB Questionnaire SALMA-7 Date SALMA - 7 assessed: 12/19/24 Source: Developed by Drs. Oswaldo Contreras, Anne Howard, Ramon Mosquera and colleagues, with an educational rob from [employer]. Physical exam (Primary Care) Vital Signs: Last Vital Signs Temp 97.3 F 02/27/25 14:14 Pulse 98 02/27/25 14:14 BP 120/66 02/27/25 14:14 Pulse Ox 97 02/27/25 14:14 Oxygen Delivery Method Room Air 02/27/25 14:14 BMI result Body Mass Index 49.5 BMI Assessment/Plan discussion: High Tobacco/Smoking Status: Tobacco use Status Tobacco use date assessed 02/27/25 02/27/25 14:19 Patient Tobacco Use Status Never used Tobacco 02/27/25 14:19 e-Cigarette/Vaping Use Never Used 02/27/25 14:19 Thrive Assessment: Date of Thrive Assessment Date Thrive assessed 12/19/24 02/27/25 14:19 Coding Level of Care Code Est Pt Level 4 (72306) Complex EM visit Add On G2211 Diagnoses Hypertension I10 Assessment & Plan Assessment & Plan (1) Hypertension: Code(s): I10 - Essential (primary) hypertension Category: Medical Plan: History of Present Illness - The patient is a 64-year-old female presenting with a wellness check-up. - Headache: Reports headaches due to pollen exposure. - Diabetes mellitus: Well-controlled with current medications, A1c level is good. - Hypertension: Blood pressure is well-managed with current medications. - Preventative care: Up to date with mammogram, needs to schedule colonoscopy. Social History - Employment: The patient is employed and keeps busy with her job. Review of Systems - Neurological: Reports headaches due to pollen exposure. Physical Exam General: Cooperative and healthy appearing Nutritional Appearance: Well nourished Orientation/consciousness: Patient oriented x3 Limitations: No limitations Head: Normal to inspection General: Appearance normal, both eyes and all related structures Neck: Normal visual inspection Chest: Normal palpation of entire chest wall Respiratory: Clear ormal respiratory effort Neurology: Patient oriented x3 Results - Labs: A1c level is good, indicating well-controlled diabetes. Plan 1. Headache - Plan: No specific treatment discussed; likely related to pollen exposure. 2. Diabetes Mellitus - Plan: Continue current medication regimen; order blood work for monitoring. 3. Hypertension - Plan: Continue current medication regimen; blood pressure is well-controlled. 4. Preventative Care: Mammogram - Plan: Patient is up to date with mammogram screening. 5. Preventative Care: Colonoscopy - Plan: Patient needs to schedule a colonoscopy. Discussion Notes During the visit, I discussed the patient's current health status, including her well-controlled diabetes and hypertension. We reviewed her preventative care measures, confirming she is up to date with her mammogram and needs to schedule a colonoscopy. I advised her to continue her current medication regimen and to complete the ordered blood work at her convenience. Patient Instructions - Continue taking your current medications as prescribed. - Schedule your colonoscopy appointment. - Complete the blood work when convenient, ensuring it is done fasting. - Follow up in six months for your next wellness check-up.
[2025-02-27 14:14] VITALS: BP 120/66; PULSE 98; TEMP 36.3; O2SAT 97; BMI 49.5
--- OUTSIDE RECORDS SUMMARY | 2025-02-27 15:19 | XMS_ITS ---
Author Name [facility] Organization Unknown Care Team Organization Name Specialty Phone Email Start Date End [facility] 07/09/2021 07/09/2021
== END 2025-02-27 14:53 | disposition home or self-care (01) ==
PROVIDERS: PCP Internal Medicine; Visit Provider Internal Medicine
DX: I10 Essential (primary) hypertension (principal)

== ENCOUNTER → 2025-02-27 14:01 | Outpatient (BNVA) | payer OTHER, SELFPAY | PROVIDERS: PCP Internal Medicine; Visit Provider Internal Medicine ==

== ENCOUNTER 2025-03-17 11:08 | Outpatient (REF) | payer OTHER, SELFPAY ==
--- OUTSIDE RECORDS SUMMARY | 2025-03-17 12:06 | XMS_ITS ---
Author Name [facility] Organization Unknown Care Team Organization Name Specialty Phone Email Start Date End [facility] 07/09/2021 07/09/2021
== END 2025-03-17 11:09 | disposition home or self-care (01) ==
LOC: HO.MAMMO 11:08
PROVIDERS: PCP Internal Medicine; Visit Provider Internal Medicine
DX: Z12.31 Encounter for screening mammogram for malignant neoplasm of breast (principal)
CPT/HCPCS: 77063; 77067

== ENCOUNTER → 2025-03-17 13:45 | Outpatient (BNV) | payer OTHER, SELFPAY | PROVIDERS: PCP Internal Medicine; Visit Provider Internal Medicine | DX: Z12.31 Encounter for screening mammogram for malignant neoplasm of breast (principal) | CPT/HCPCS: 77063; 77067 ==